=== PATIENT | male | born 1950 | race Caucasian/White ===

== ENCOUNTER 2020-08-19 22:37 | Emergency (ER) | payer OTHER, MEDICARE ==
[~2020-08-19] VITALS: Ht 180.3 cm; Wt 89.0 kg
[2020-08-19 23:04] VITALS: BP 135/57
[2020-08-19 23:54] LABS: BASOPHILS % (AUTO) 1 % (0-1); EOSINOPHILS % (AUTO) 2 % (1-7); LYMPHOCYTES % (AUTO) 19 % (22-44); MEAN CORPUSCULAR HEMOGLOBIN 27.2 pg (27.5-34.5); MEAN PLATELET VOLUME 7.2 fL (7.4-10.4); MONOCYTES % (AUTO) 17 % (2-9); NEUTROPHILS % (AUTO) 61 % (42-75); PLATELET COUNT 225 x10^3/uL (130-400); RED CELL DISTRIBUTION WIDTH 14.9 % (9.4-14.8)
[2020-08-19 23:58] LABS: MD NO
[2020-08-20 00:03] LABS: ANION GAP 6 mmol/L (5-15); CHLORIDE 107 mmol/L (98-107); CREATININE 2.18 mg/dL (0.7-1.3)
--- NOTE | 2020-08-20 00:48 | NUR ---
pt came into ed today for a medication refill for dm meds. he is currently visiting from out of town. pt nad, fsbg obtained prior to pt being roomed. family at bs. Patient is resting comfortably in bed. Bed in lowest, rails engaged, call light on lap. provided warm blankets for comfort. Vital Signs within normal limits. WCTM. Lantus 35units is the medication he forgot to pack.
[2020-08-20] MEDS ORDERED: INSU100I13 SC (00:49)
[2020-08-20] MEDS ORDERED: INSULIN GLARGINE 100 UNITS/ML, PEN SQ-INSULIN ONE (01:00)
== END 2020-08-20 01:46 | disposition home or self-care (01) ==
LOC: ED 08-20 01:40
DX: E11.9 Type 2 diabetes mellitus without complications (principal); Z76.0 Encounter for issue of repeat prescription; F17.210 Nicotine dependence, cigarettes, uncomplicated
CPT/HCPCS: 36415; 80048; 82962; 85025; 99283; 99406; J1815